=== PATIENT | male | born 1935 | race Caucasian/White ===

== ENCOUNTER → 2017-01-23 | Outpatient (CLI) | payer OTHER, MEDICARE ==
[~2017-01-23] VITALS: Ht 162.6 cm; Wt 83.9 kg
[~2017-01-23] MED LIST: ASPIRIN EC81 M1 PO; CLEOCIN HCL150 MG PO; FINASTERIDE5 MG PO; FLOMAX0.4 MG PO; GABAPENTIN 100100 MG PO; GLUCOSAMINE &1 EAC1 PO; MAGNESIUM GLUC500 M1 PO; MAGNESIUM OXID250 MG PO; MAGOX 400400 MG PO; MIRALAX17 GM PO; MULTIVITAMINS PO; NABUMETONE 750750 M1 PO; NORCO 7.5-3251 EACH PO; OMEPRAZOLE 20 M20 M1 PO; PERCOCET 7.5-31 EACH PO; PERIDEX15 ML SWISH&SPIT; PRILOSEC 20 MG20 MG PO; QUINU10 PD PO; STOOL SOFTENER1 EAC2 PO; STOOL SOFTENER50 MG PO; SUPER B COMPLE1 EAC2 PO; SUPER B COMPLE150 MG PO; TOPROL XL25 MG PO; TYLENOL P.M. E1 EAC3 PO; VITAMIN D1000 UNI1 PO; VITAMIN D2000 UNIT PO; VITAMIN E400 UNIT; VITAMIN E400 UNIT PO; VITAMINC500 PO; ZESTRIL20 MG PO
--- NOTE | ~2017-01-23 | S ---
[facility] [place] [address] SURGICAL PATH RPT PROCEDURE Name: ELIOT ASTUDILLO Room #: REG [facility] M..#: [id number] Admission: 01/23/17 Date of : 37 Discharge: Report #: [id number] Path Case #: [id number] PATHOLOGY REPORT COLLECTION DATE: 01/23/2017 RECEIVED DATE: 01/23/2017 SUBMITTING PHYS: Dr. Luis Antonio Salgado OTHER PHYS: Dr. Kvng Berger SPECIMEN(S) RECEIVED: A.Distal esophagus * * * * * * * * * * * * FINAL DIAGNOSIS: Gastroesophageal mucosa, distal esophagus, rule out Urban's, endoscopic biopsy: - Gastric-type mucosa with moderate chronic inflammation. - Squamous mucosa with mild esophagitis. - Negative for intestinal metaplasia or dysplasia. (IUV:mml; 01/26/2017) PATHOLOGIST: Renata Perez M.D. REPORT ELECTRONICALLY SIGNED BY: Renata Perez M.D. DATE/TIME: 01/26/2017 16:16 * * * * * * * * * * * * GROSS PATHOLOGY: The specimen is received in formalin, labeled "Eliot Astudillo and biopsy of distal esophagus rule out Urban's", are two ortega white soft tissue 0.2 cm in greatest dimension each, entirely submitted in A1. (SWS; 01/23/2017) CLINICAL HISTORY: EGD, rule out Urban's INITIAL CPT CODE(S): A; 75929 Professional services performed by [facility] at [facility] [address], [place] [address] Technical services performed by [facility] at [address] [place] [id number]. [facility] [address] [place] [address] SURGICAL PATH RPT PROCEDURE Name: ELIOT ASTUDILLO Room #: REG KIRTI Garrido#: [id number] Admission: 01/23/17 Date of : 37 Discharge: Report #: [id number] Path Case #: [id number] [facility] [address] [address] PHONE: [phone] DIRECTOR: Polo Robledo M.D. * * * END OF REPORT * * *
--- NOTE | ~2017-01-23 | P ---
[facility] [place] [address] PROCEDURE REPORT Name: ELIOT ASTUDILLO [facility] [id number] Admission: 01/23/17 Attend Phys: Luis Antonio Jarquin Discharge: Date of : 37 Report #: [id number] THIS REPORT FOR: //name// CC: Luis Antonio Berger MD DATE OF SERVICE: 01/23/2017 PROCEDURE PERFORMED: Upper endoscopy with biopsies and esophageal dilation. 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 Last EGD in 2013 showed no evidence of Urban's. He does complain of dysphagia. Dilation has been performed in the past, which was helpful. PROCEDURE: The risks and benefits of the procedure were explained to the patient, those risks including, but not limited to bleeding, perforation, and the risk of sedation. He understood these risks and gave informed consent. Sedation was given using propofol per anesthesia. Next, using a standard [employer] upper endoscope, the scope was placed in the patient's mouth and advanced under direct vision through the esophagus, stomach and into the second portion of the duodenum. The upper and mid esophagus was normal in appearance. In the distal esophagus at the GE junction, a possible short segment Urban's was noted. Biopsies were obtained. No esophagitis. No stricture was noted. Upon entering the stomach, a small hiatal hernia was noted. Overall, the gastric mucosa was normal. The pylorus was normal and patent. The duodenal bulb, first and second portion were all normal. The scope was then brought back up into the patient's stomach and a Savary guidewire was inserted through the scope, leaving the guidewire in place as the scope was then withdrawn. Next, a 48-Tamazight Savary dilation of the esophagus was then performed without difficulty. The wire and dilator were removed. The scope was reintroduced into the patient's stomach. There was no evidence of mucosal tear after dilation. The scope was then withdrawn and the procedure terminated. The patient tolerated the procedure well. IMPRESSION: 1. Possible short segment Urban's. 2. Small hiatal hernia. 3. Otherwise, normal upper endoscopy. RECOMMENDATIONS: 1. Await biopsy results. 2. Continue daily PPI therapy. 3. Observe the patient post dilation. [address] [address] PROCEDURE REPORT Name: ELIOT ASTUDILLO Room #: REG KIRTI Garrido#: [id number] Admission: 01/23/17 Attend Phys: Luis Antonio Jarquin Discharge: Date of : 37 Report #: [id number] Thank you for allowing me to participate in his care. By: 0934 [id number] Luis Antonio Salgado MD /nt
== END | disposition home or self-care (01) ==
LOC: GI 01-21 11:31
DX: K29.50 Unspecified chronic gastritis without bleeding (principal); K44.9 Diaphragmatic hernia without obstruction or gangrene; K20.9 Esophagitis, unspecified; I10 Essential (primary) hypertension; K21.9 Gastro-esophageal reflux disease without esophagitis; Z90.49 Acquired absence of other specified parts of digestive tract; Z87.891 Personal history of nicotine dependence; Z98.890 Other specified postprocedural states; Z88.0 Allergy status to penicillin; Z88.5 Allergy status to narcotic agent; Z79.899 Other long term (current) drug therapy

== ENCOUNTER 2018-04-25 17:40 | Emergency (ER) | payer OTHER, MEDICARE ==
[~2018-04-25] VITALS: Ht 160 cm; Wt 86.2 kg
[2018-04-25] MEDS ORDERED: APAP650 PO (18:48)
[2018-04-25 18:59] VITALS: BP 140/67
== END 2018-04-25 19:00 | disposition home or self-care (01) ==
LOC: ER 17:40
DX: R07.81 Pleurodynia (principal); I10 Essential (primary) hypertension; K21.9 Gastro-esophageal reflux disease without esophagitis; M16.12 Unilateral primary osteoarthritis, left hip; Z87.891 Personal history of nicotine dependence; Z88.0 Allergy status to penicillin; Z91.018 Allergy to other foods; Z90.49 Acquired absence of other specified parts of digestive tract; W10.9XXA Fall (on) (from) unspecified stairs and steps, initial encounter; Y92.89 Other specified places as the place of occurrence of the external cause; Y93.89 Activity, other specified; Y99.8 Other external cause status

== ENCOUNTER 2019-02-07 10:34 | Inpatient (IN) | payer OTHER, MEDICARE ==
[2019-01-24 13:21] LABS: HEMATOCRIT 45.1 % (42.0-52.0); HEMOGLOBIN 14.8 gm/dL (14.0-18.0); MCH 28.2 pg (26.0-34.0); MCHC 32.9 g/dL (28.0-37.0); MCV 85.8 fL (80.0-100.0); RBC 5.26 mil/uL (4.50-6.00); RDW 13.4 % (10.5-14.5); WBC 6.2 thou/uL (4.0-11.0)
[2019-01-24 13:27] LABS: URINE BILIRUBIN NEGATIVE (Negative); URINE BLOOD NEGATIVE (Negative); URINE CLARITY CLEAR; URINE COLOR YELLOW; URINE GLUCOSE-RANDOM* NEGATIVE (Negative); URINE KETONES NEGATIVE (Negative); URINE LEUKOCYTES-REFLEX NEGATIVE (Negative); URINE NITRITE-REFLEX NEGATIVE (Negative); URINE PROTEIN (DIPSTICK) NEGATIVE (Negative); URINE SPECIFIC GRAVITY <= 1.005 (1.005-1.035); URINE UROBILINOGEN 0.2 E.U./dl (0.2-1.0)
[2019-01-24 13:32] LABS: ALBUMIN 3.8 g/dL (3.4-5.0); CALCIUM 9.5 mg/dL (8.5-10.1); POTASSIUM 4.3 mmol/L (3.5-5.1)
[2019-01-24 13:34] LABS: INR 1.1; PROTIME 11.3 Seconds (9.3-11.4)
--- NOTE | 2019-01-25 07:58 | EKG ---
[place] [address] [facility] [place] [address] ELECTROCARDIOGRAM REPORT Name: ELIOT ASTUDILLO Room #: PRE IN ..#: [id number] Admission: Attend Phys: Claus Elizabeth MD Discharge: Date of : 37 Report #: [id number] THIS REPORT FOR: //name// [facility] Test Date: 2019-01-24 Test Time: 13:22:34 Pat Name: ELIOT ASTUDILLO Department: Room: Gender: Corporate Receptionist: monetkasie : 1935 Requested By: Claus Elizabeth Order Number: [id number] MD: Geovanny Hinds Measurements Intervals Pitman Rate: 83 P: -14 OR: 215 QRS: 85 QRSD: 89 T: 31 QT: 360 QTc: 423 Interpretive Statements Sinus rhythm Borderline prolonged OR interval Borderline right axis deviation Abnormal R-wave progression, early transition Compared to ECG 10/12/2015 13:40:02 No significant changes Electronically Signed On 01-25-2019 7:58:39 CDT by Geovanny Hinds [email or web address] <ELECTRONICALLY SIGNED> By: Geovanny Hinds MD, [facility] 01/25/19 0758 132 21 Geovanny Hinds MD, [facility] /EPI
[~2019-02-07] VITALS: Ht 160 cm; Wt 83.5 kg
[~2019-02-07 10:34] MED LIST changes: +APAP650 PO; +LOPRESSOR25 PO; +SUPER B-50 COM1 EACH PO; +TRAMADOL 50 MG50 MG PO
[2019-02-07 11:21] VITALS: BP 131/73
[2019-02-07 16:52] VITALS: BP 110/54
--- NOTE | 2019-02-07 18:31 | NUR ---
ASSUMED CARE OF PT AT 1630 PT ADMITTED FOR A LEFT TOLTAL HIP. PT ALERT AND ORIENTED TIMES FOUR. VSS, IVF INFUSING PER ORDER, 92%2L. SCHEDULED PAIN MEDICATION CONTROLLING PAIN WELL. PT TOLERATES MEDS AND MEALS. PT FAMILY MEMBERS AT BEDSIDE AFTER SURGERY. WILL CONTINUE TO MONITOR.
[2019-02-07 19:25] VITALS: BP 103/64
[2019-02-08] VITALS (9 sets, daily range): BP systolic 76–155; BP diastolic 32–66
--- NOTE | 2019-02-08 04:51 | NUR ---
ASSUMED PT CARE AROUND 1900. A&OX4. VERY PLEASANT AND COOPERATIVE. PT DENIES ANY LEFT HIP PAIN EXCEPT WITH MOVT. LEFT HIP DRESSING C/D/I. ICE PACK APPLIED ORDERED. PT STATED HE WAS UNCOMFORTABLE BEING TURNED AND HE REQUESTED TO SLEEP ON HIS BACK. NO SKIN BREAKDOWN NOTED ON BACK SIDE. PT ENCOURAGED TO USE INCENTIVE SPIROMETER. SBP DROPPED TO 80S WHILE PT WAS SLEEPING. HE WAS AWAKENED AND DENIED ANY DIZZINESS OR ASSOCIATED SYMPTOMS. BP HAS SINCE IMPROVED. LOW URINE OUTPUT NOTED. BLADDER SCANNED 693ML. PT STATED HE WAS NOT UNCOMFORTABLE NOR DID HE HAVE STRONG URGE TO VOID. STRAIGHT CATHED X1 PER POST-OP ORDERS. PT IS SLEEPING AT THIS TIME. RESP EVEN AND UNLABORED. FALL PRECAUTIONS IN PLACE. PROGRESSING SLOWLY TOWARD POC GOALS. WILL CONTINUE TO MONTIOR FURTHER.
[2019-02-08 06:22] LABS: HEMATOCRIT 31.9 % (42.0-52.0); HEMOGLOBIN 10.5 gm/dL (14.0-18.0); MCH 28.7 pg (26.0-34.0); MCV 86.8 fL (80.0-100.0); RBC 3.67 mil/uL (4.50-6.00); RDW 13.6 % (10.5-14.5); WBC 9.3 thou/uL (4.0-11.0)
--- NOTE | 2019-02-08 10:17 | NUR ---
FAXED REFERRAL TO [facility] RECEIVED CONFIRMATION AND NOTIFIED CHYNA IN ADM ANTICIPATE DC SATURDAY 02/10.
--- NOTE | 2019-02-08 14:05 | NUR ---
PT ADMITTED RELATED TO LEFT TOTAL HIP REPLACEMENT. CM REVIEWED CHART AND SPOKE WITH CARE TEAM. CM MET WITH PT AT BEDSIDE THIS DAY. PT IS A&O X4. CM ROLE INTRODCUED. PT INDICATED HE LIVES ALONE IN A CONDO WITH 3 STEPS TO ENTER AND 4 STEPS INSIDE. PT INDICATED HE HAD USED A CANE TO ASSIST WITH MOBILITY LAND CHECKER. PT INDICATED THAT HE HOPED TO GO TO [facility] UPON DC. REFERRAL HAD BEEN SET TO [facility] AND THEY INDICATED THEY ARE ABLE TO ACCEPT PT ONCE MEDICALLY STABLE. PT NEEDS 3 MIDNIGHTS SO SOONEST DC WOULD BE THURSDAY. PT IS AWARE AND AGREEABLE. CM TO FOLLOW INDICATED WITH DC PLANNING.
--- NOTE | 2019-02-08 20:28 | NUR ---
ASSUMED CARE OF PATIENT AT 0715, PATIENT ALERT AND ORIENTED X4. PATIENT UP WITH ASSIST X 1 WITH GAIT BELT AND WALKER. PT/LUÍS WORKED WITH THE PATIENT X 2 TODAY, PATIENT UP IN CHAIR THIS AFTERNOON. LEFT FOREARM IV WITH D51/2/NS AT 100CC/HR RESTARTED DUE TO B/P LOW, THIS RN NOTIFID DOT/HIDE WORKER WHO STATES TO CHECK B/P HOURLY AND RESTART IV FLUIDS, B/P UP THIS EVENING. BLADDER SCAN DONE 558CC AT 1455, STRAIGHT DONE 690CC OBTAINED BY KAMRYN/RN. PATIENT CONTRERAS LEFT HIP CARLOS DRESSING IN PLACE. ABDUCTION PILLOW IN PLACE. PATIENT RECEIVED HYDROCODONE X 2 THIS SHIFT, TYLENOL EXTRA-STRENGTH SCHEDULED. WITH ADEQUATE RELIEF. HELD LISINOPRIL THIS AM. DUE TO B/P, DOT/HIDE WORKER NOTIFIED. WILL CONTINUE TO MONITOR.
--- NOTE | 2019-02-09 00:43 | NUR ---
ASSESSMENT COMPLETED. PT STILL URINATING LITTLE AMOUNTS. HE IS DENYING ANY DISTRESS. AFEBRILE. PT IS PLEASANT.SCDS AND TEDS IN PLACE. PT ALSO HAS ABDUCTOR PILLOW IN PLACE.SWALLOWS MEDS ONE AT A TIME AND IS NOTED TO HAVE SOME MILD DIFFICULTY/WILL COUGH. IVF INFUSING VIA LFA.L HIP DRSG C/D/I. FALL PREC IN PLACE. CALL LIGHT WITHIN REACH.
[2019-02-09 08:09] LABS: HEMATOCRIT 30.5 % (42.0-52.0); HEMOGLOBIN 10.3 gm/dL (14.0-18.0); MCH 29.2 pg (26.0-34.0); MCHC 33.9 g/dL (28.0-37.0); MCV 86.3 fL (80.0-100.0); RBC 3.53 mil/uL (4.50-6.00); WBC 7.6 thou/uL (4.0-11.0)
[2019-02-09 08:39] VITALS: BP 121/48
[2019-02-09] MEDS ORDERED: NEURONTIN 300300 M1 PO (12:58)
[2019-02-09] MEDS ORDERED: ELIQUIS2.5 MG PO (12:58)
--- NOTE | 2019-02-09 14:53 | NUR ---
Pt updated at bedside. [facility] has a bed for him tomorrow. He is agreeable. Care team updated. Likely dc to snf tomorrow.
[2019-02-09 19:51] VITALS: BP 139/70
--- NOTE | 2019-02-09 20:31 | NUR ---
ASSUMED CARE OF PATIENT AT 0715, PATIENT ALERT AND ORIENTED X 4. PATIENT UP WITH ASSIST X 1 WITH GAIT BELT AND WALKER. PATIENT C/O PAIN THIS AM WITH LEFT HIP AREA, CARLOS DRESSING IN PLACE. PATIENT WORKED WITH PT X 2 THIS SHIFT. PATIENT HAS LEFT FOREARM IV IN PLACE, IV FLUIDS DICONTINUED THIS AM. PATIENT B/P OK TODAY, URINATING W/O DIFFICULTY. PATIENT HAD LARGE BM THIS EVENING. PATIENT MAY DISCHARGE TO REHAB TOMORROW. WILL CONTINUE TO MONITOR
--- NOTE | 2019-02-10 01:22 | NUR ---
ASSESSMENT COMPLETED. PT IS ALERT AND ORIENTED. PLEASANT. RATES PAIN TO LEFT HIP AT ABOUT 4/10,SCHEDULED TYLENOL IS RELIEVING THE PAIN. PT IS VOIDING OKAY PER URINAL. SWALLOWS MEDS OKAY-ONE AT A TIME AND AVOIDING STRAWS.DRSG TO L HIP IS C/D/I. ANTICIPATING D/C TOMORROW. NO FURTHER CONCERNS.
[2019-02-10 06:11] LABS: HEMATOCRIT 29.5 % (42.0-52.0); HEMOGLOBIN 9.8 gm/dL (14.0-18.0); MCH 28.9 pg (26.0-34.0); MCHC 33.3 g/dL (28.0-37.0); MCV 86.6 fL (80.0-100.0); RBC 3.41 mil/uL (4.50-6.00); WBC 7.7 thou/uL (4.0-11.0)
[2019-02-10 08:59] VITALS: BP 147/66
--- NOTE | 2019-02-10 10:52 | NUR ---
PT DISCHARGING TODAY TO [facility] FAXED DC ORDERS/SUMMARY TO FACILITY RECEIVED CONFIRMATION AND TRANSPORT ARRANGED BY CHYNA IN ADM FOR 1300 TODAY. NOTIFIED PT'S DPOA/FRIEND (AMANDA) OF DC AND TIME OF TRANSPORT AND HE WILL MEET PT AT FACILITY. NOTIFIED UNIT AND CHART COPY PER US. RN TO CALL REPORT TO [phone].
--- NOTE | 2019-02-10 11:01 | NUR ---
TOOK OVER PAT CARE APPROX. 0700. PATIENT STATING HE IS EXCITED TO BE DISCHARGED TODAY. A&OX4. PT IS BEING DISCHARGED TODAY TO [facility]. PT TAKES HIS MEDICATIONS ONE PILL AT A TIME WITH NO STRAW TO REDUCE ASPIRATION. STATES NO MORE BLADDER PRESSURE AND IS NOT HAVING ANY DIFFICULTY URINATING.
--- NOTE | 2019-02-10 13:39 | NUR ---
REPORT GIVEN AT 1308 TO JANENE HURLEY. ALL QUESTIONS ANSWERED IV TAKEN OUT WITH NO ISSUES. [facility] PROVIDED DISCHARGED AND PATIENT WAS PICKED UP AT 1310.
--- NOTE | 2019-02-15 12:13 | O ---
[facility] [place] [address] OPERATIVE REPORT Name: ELIOT ASTUDILLO Room #: 435-P [facility] M.R.#: [id number] Admission: 02/07/19 Attend Phys: Claus Elizabeth MD Discharge: 02/10/19 Date of : 37 Report #: [id number] THIS REPORT FOR: //name// CC: Kvng Elizabeth DATE OF SERVICE: 02/07/2019 PREOPERATIVE DIAGNOSIS: Left hip osteoarthritis with retained hardware from a previous left hip fracture. POSTOPERATIVE DIAGNOSIS: Left hip osteoarthritis with retained hardware from a previous left hip fracture. PROCEDURE: 1. Left total hip arthroplasty. 2. Hardware removal, deep left proximal femur. SURGEON: Claus Elizabeth MD. STEEL RIGGER: Kailee Barkley PA-C. INDICATIONS FOR STEEL RIGGER: Throughout the case, extensive retraction and manipulation of the hip was required including dislocation and reduction. This was afforded to me by my registered dental assistant. ANESTHESIA: General. IMPLANTS: Johnson [employer]hew size 14 high offset Synergy cemented stem, a size 56 R3 acetabular cup with 2 acetabular screws and a size 36 -3 cobalt chrome head. ESTIMATED BLOOD LOSS: 100 mL. COMPLICATIONS: None. SPECIMENS: None. CONDITION UPON LEAVING THE OPERATING ROOM: Stable. INDICATIONS FOR PROCEDURE: The patient is an 83-year-old who has severe left hip osteoarthritis. He has previously had an intertrochanteric hip fracture, treated with a ____ plate and compression screw. After discussion with him, he elected for left total hip arthroplasty. DESCRIPTION OF PROCEDURE: Risks, benefits, alternatives, complications were discussed in detail with the patient including but not limited to risk of [facility] [address] [place] [address] OPERATIVE REPORT Name: ELIOT ASTUDILLO Room #: 435-P [facility] IN M.R.#: [id number] Admission: 02/07/19 Attend Phys: Claus Elizabeth MD Discharge: 02/10/19 Date of : 36 Report #: [id number] anesthesia, risk of damage to nerves, arteries, blood vessels, risk for infection, bleeding, risk for leg length discrepancy, instability and need for reoperation. Informed consent was obtained from the patient. Left hip was appropriately marked in the preoperative holding area. IV Ancef was given for preoperative antibiotics. He was brought to the operating room and placed in supine position on operating room table. General anesthesia was induced without complication. He was then placed in the right lateral decubitus position with left hip uppermost. Left hip and lower extremity was then prepped and draped in normal sterile fashion. Timeout was performed properly identifying the patient and procedure as well as the instrumentation and implants. All in the operating room were in agreement. Standard posterior approach to the hip was made with 10 blade through the skin. Dissection was taken down to the fascia with Bovie cautery and Webb elevator was used to clean off the fascia. The size 10 blade was used to make a fascial incision. This was taken proximally and distally with curved Kuhn scissor. This incision did extend distally in order to remove the plate itself. The vastus lateralis was then split in line with its fibers and the compression screw and plate were identified. The 4 distal locking screws were removed and the plate was then removed from the compression screw and compression screw was then backed out. After this, attention was turned to the hip replacement and the trochanteric bursa was taken down with Bovie cautery. Piriformis tendon was identified, tagged and taken down with Bovie. Short external rotators were also taken down with Bovie cautery. Capsulotomy was made and capsule ends were tagged for later repair. Hip was dislocated. There was extensive osteoarthritic change of the femoral head. Femoral neck cut was made 1 cm proximal to lesser trochanter based on preoperative templating and the femoral head was removed. Deep acetabular retractors were placed and the labrum was removed sharply. Pulvinar was removed with Bovie cautery. Acetabulum was then sequentially reamed up to a size 56 at which point, there was excellent bleeding cancellous bone. A size 55 trial cup was placed, found to have a good fit. Final size 56 R3 ____ two acetabular screws were placed in the cup for backup fixation. Polyethylene liner for a 36 head was placed. After this, attention was turned to the femur. This was reamed and broached up to a size 14, at which point, the size 14 broach was stable, was trialed with a high offset neck and a 36+0 head. Hip was reduced, taken through range of motion, found to be stable, found to have equal leg lengths. After this, hip was dislocated and the broach was removed. It was decided to cement the stem in place given his previous history of a fracture as well as the stress risers in the bone secondary to screw removal. The size 14 high offset Synergy stem was then cemented in place using standard cementation techniques. While the cement cured, the stem was held in place. After it cured, this was trialed with a 36 -3 head. Hip was reduced, taken through range of motion, found to be stable, found to have equal leg lengths. Hip was dislocated one last time and a final size 36 -3 cobalt chrome head was placed. Hip was reduced, taken through range of motion, found to be stable, found to have equal leg lengths. Periarticular injection consisting of morphine, ropivacaine, epinephrine and Toradol was placed around the hip joint capsule. A gram of vancomycin was placed deep in [facility] [address] [place] [address] OPERATIVE REPORT Name: ELIOT ASTUDILLO Room #: 435-P [facility] IN M.R.#: [id number] Admission: 02/07/19 Attend Phys: Claus Elizabeth MD Discharge: 02/10/19 Date of : 37 Report #: [id number] the joint capsule and piriformis repaired with 0 FiberWire. Fascia was closed with 0 Vicryl, skin was closed with 2-0 Vicryl, skin staple and a CARLOS dressing was applied. The patient tolerated this procedure well and went to recovery room under care of anesthesia postoperatively. <ELECTRONICALLY SIGNED> By: Claus Elizabeth MD 02/15/19 1213 1704 1744 Claus Elizabeth MD /nt
== END 2019-02-10 13:40 | DRG 470 ==
LOC: TBA 10:34 → 4S 10:34 → PRE 12:36 → 4S 16:27 → PRE 02-08 13:58 → 4S 02-10 13:40
PROVIDERS: ADMIT Orthopaedic Surgery
PROC: 0SRB019 Replacement of Left Hip Joint with Metal Synthetic Substitute, Cemented, Open Approach (ICD-10-PCS; principal; 2019-02-07)
PROC: 0QP704Z Removal of Internal Fixation Device from Left Upper Femur, Open Approach (ICD-10-PCS; 2019-02-07)
DX: M16.12 Unilateral primary osteoarthritis, left hip (principal); Z79.899 Other long term (current) drug therapy; Z88.0 Allergy status to penicillin; Z23 Encounter for immunization; Y83.1 Surgical operation with implant of artificial internal device as the cause of abnormal reaction of the patient, or of later complication, without mention of misadventure at the time of the procedure; Y92.89 Other specified places as the place of occurrence of the external cause
CPT/HCPCS: 10102; 50010; 50101; 50382; 50414; 51057; 51130; 51225; 51226; 51412; 53000; 53078; 53367; 54118; 56460; 56524; 56527; 56528; 56530; 57095; 57103; 57115; 62110; 62900; 70005

== ENCOUNTER → 2020-02-10 | Outpatient (CLI) | payer OTHER, MEDICARE ==
[~2020-02-10] MED LIST changes: +ELIQUIS2.5 MG PO; +NEURONTIN 300300 M1 PO
== END ==
LOC: LAB 10:25
PROVIDERS: ATTEND Specialist
DX: Z01.812 Encounter for preprocedural laboratory examination (principal); Z20.828 Contact with and (suspected) exposure to other viral communicable diseases

== ENCOUNTER → 2020-02-15 | Outpatient (CLI) | payer OTHER, MEDICARE ==
[~2020-02-15] VITALS: Ht 162.6 cm; Wt 78.0 kg
--- NOTE | 2020-02-17 10:50 | P ---
[facility] [place] [address] PROCEDURE REPORT Name: ELIOT ASTUDILLO Room #: REG [facility] eHma#: [id number] Admission: 02/15/20 Attend Phys: Luis Antonio Jarquin Discharge: Date of : 37 Report #: [id number] THIS REPORT FOR: cc: Danyelle Rushing MD,Luis Antonio Puente MD, MD ~ CC: Luis Antonio Rushing MD DATE OF SERVICE: 02/15/2020 PROCEDURE PERFORMED: Upper endoscopy with biopsies and esophageal dilation. HISTORY OF PRESENT ILLNESS: The patient is an 84-year-old male with a history of gastroesophageal reflux disease, previous history of Urban's esophagus, who underwent halo ablation in the past. Last upper endoscopy 2016. Biopsies were negative for Urban's esophagus. The patient does take Prilosec on a daily basis. He does report some mild dysphagia to pills. Plan is for EGD. DESCRIPTION OF PROCEDURE: The risks and benefits of the procedure were explained to the patient, these risks including but not limited to bleeding, perforation and the risk of sedation. He understood these risks and gave informed consent. Sedation was given using propofol per anesthesia. Next, using a standard Olympus upper endoscope, the scope was placed in the patient's mouth and advanced under direct vision through the esophagus, stomach and into the second portion of the duodenum. The upper and mid esophagus was normal in appearance. At the GE junction, a tiny possible area of Urban's was noted approximately 3 mm. Biopsies were obtained. No evidence of stricture, no evidence of esophagitis. Upon entering the stomach, a small hiatal hernia was noted. Overall, the gastric mucosa was normal. The pylorus was normal and patent. The duodenal bulb, first and second portion were all normal. The scope was then brought back up into the patient's stomach and a Savary guidewire was advanced through the scope, leaving the guidewire in place as the scope was then withdrawn. Next, a 51-Lao Savary dilation of the esophagus was performed without difficulty. The wire and dilator removed. The scope was reintroduced into the patient's stomach. No evidence of mucosal tear was noted after dilation. The scope was then withdrawn and the procedure terminated. The patient tolerated the procedure well. IMPRESSION: 1. Possible tiny area of Urban's esophagus, biopsies obtained. 2. Small hiatal hernia. 3. Otherwise, normal upper endoscopy. RECOMMENDATIONS: [facility] [address] [place] [address] PROCEDURE REPORT Name: ELIOT ASTUDILLO Room #: REG [facility].#: [id number] Admission: 02/15/20 Attend Phys: Luis Antonio Jarquin Discharge: Date of : 37 Report #: [id number] 1. Await biopsy results. 2. Observe the patient post-dilation. 3. Continue daily PPI therapy. Thank you for allowing me to participate in his care. <ELECTRONICALLY SIGNED> By: Luis Antonio Salgado MD 02/17/20 1050 1103 2036 Luis Antonio Salgado MD /nt
--- NOTE | 2020-02-17 17:06 | PATH ---
[facility] [address] [place] [address] PATHOLOGY RPT PROCEDURE Name: ELIOT ASTUDILLO Room #: REG [facility] M.R.#: [id number] Admission: 02/15/20 Date of : 37 Discharge: Report #: [id number] Path Case #: [id number] [facility] Accession Number: [id number] . 01 Material submitted: . esophagus - DISTAL ESOPHAGUS R/O BARRETTS. Modifiers: distal . 01 Clinical history: . HX OF CANNON, DILATION . 02 Diagnosis: Gastric fundic-type mucosa, distal esophagus to rule out Cannon's, endoscopic biopsy: - Mild to moderate chronic inflammation. - Negative for intestinal metaplasia or dysplasia. (IUV:forms examiner; 02/17/2020) MBR 02/17/2020 1138 Local . 02 Electronically signed: . Renata Perez MD, Pathologist NPI- [id number] . 01 Gross description: . Received in formalin labeled "Karo, Eliot, distal esophagus rule out Cannon's" is a fragment of kim-brown soft tissue measuring 0.3 x 0.3 x 0.1 cm. The specimen is submitted entirely in A1. ([facility]; 02/16/2020) [facility] 02/16/2020 1608 Local . 02 Pathologist provided ICD-10: K20.90 . 02 CPT . 986810 Specimen Comment: A courtesy copy of this report has been sent to [phone] Specimen Comment: Report sent to Performed at: [address], [place], [place] [id number] MD Mykel Adams MD Phone: [phone] Performed at: [address] [id number] MD Renata Perez MD Phone: [phone]
== END | disposition home or self-care (01) ==
LOC: GI 09:17
PROVIDERS: ATTEND Specialist
DX: K21.00 Gastro-esophageal reflux disease with esophagitis, without bleeding (principal); K44.9 Diaphragmatic hernia without obstruction or gangrene; I10 Essential (primary) hypertension; N40.0 Benign prostatic hyperplasia without lower urinary tract symptoms; Z98.890 Other specified postprocedural states; Z79.899 Other long term (current) drug therapy; Z90.49 Acquired absence of other specified parts of digestive tract; Z96.642 Presence of left artificial hip joint; Z87.891 Personal history of nicotine dependence; Z88.0 Allergy status to penicillin; Z88.8 Allergy status to other drugs, medicaments and biological substances
CPT/HCPCS: 62110; 62900